=== PATIENT | female | born 1990 | race Caucasian/White ===

== ENCOUNTER 2021-06-24 17:44 | Emergency (ER) | payer OTHER | END 2021-06-24 19:21 | disposition home or self-care (01) | LOC: BURERS 17:44 | DX: O99.512 Diseases of the respiratory system complicating pregnancy, second trimester (principal); J06.9 Acute upper respiratory infection, unspecified | CPT/HCPCS: 94760 ==

== ENCOUNTER 2023-01-06 22:45 | Emergency (ER) | payer OTHER, SELFPAY ==
[2023-01-06] MEDS ORDERED: Ketorolac Tromethamine 30 MG/ML VIAL ONE (22:55)
== END 2023-01-07 00:16 | disposition home or self-care (01) ==
LOC: BURERS 22:45
DX: S53.401A Unspecified sprain of right elbow, initial encounter (principal); X58.XXXA Exposure to other specified factors, initial encounter
CPT/HCPCS: 29105; 96372; J1885